=== PATIENT | female | born 1960 | race African-American/Black ===

== ENCOUNTER 2017-09-27 16:25 | Emergency (ER) | payer BC, MEDICARE ==
[~2017-09-27] VITALS: Ht 157.5 cm; Wt 68.0 kg
[~2017-09-27 16:25] MED LIST: AMLO-512 PO; ASPI81TA87 PO; ATOR20TA86 PO; BENZ0.5T44 PO; DIPH-654 PO; GABA-531 PO; HALO5 PO; HYDR-3965 PO; INSLAN SQ; INSNOV SQ; KDUR10 PO; LEVO100 PO; LISI-661 PO; QUET200T PO; SERT50TA12 PO; TRAZ-147 PO; TRIA1TAB3 PO; ZOLP10TA7 PO
[2017-09-27 16:42] LABS: GLUCOSE,POINT OF CARE > 600 MG/DL (70-110)
[2017-09-27] MEDS ORDERED: SODIUM CHLORIDE 0.9% 1,000 ML IV ONE ×2 (17:00→17:45)
[2017-09-27] MEDS ORDERED: INSULIN REGULAR, HUMAN 100 UNITS/ML IVP ONE (17:00)
[2017-09-27] MEDS ORDERED: KETOROLAC TROMETHAMINE 30 MG/ML VIAL IVP ONE (17:00)
[2017-09-27 17:13] LABS: BASOPHILS % (AUTO) 1.1 % (0.0-2.0); EOSINOPHILS % (AUTO) 0.9 % (1.0-6.0); HEMATOCRIT 38.6 % (36-46); HEMOGLOBIN 12.9 g/dL (12.0-16.0); LYMPHOCYTES # (AUTO) 1.5 K/uL (1.0-4.8); LYMPHOCYTES % (AUTO) 14.1 % (22.0-44.0); MEAN CORPUSCULAR HEMOGLOBIN 27.6 pg (26.0-34.0); MEAN CORPUSCULAR HGB CONC 33.4 G/dL (31.0-37.0); MEAN CORPUSCULAR VOLUME 83 fL (80-100); MONOCYTES # (AUTO) 0.7 K/uL (0.1-1.0); MONOCYTES % (AUTO) 6.3 % (2.0-9.0); NEUTROPHILS # (AUTO) 8.3 K/uL (1.8-7.7); NEUTROPHILS % (AUTO) 77.6 % (40.0-70.0); PLATELET COUNT (AUTO) 219 K/uL (150-450); RED BLOOD CELL COUNT(AUTO) 4.67 MIL/uL (4.00-5.20)
[2017-09-27 17:27] LABS: CALCIUM, TOTAL 9.4 mg/dL (8.8-10.5); CREATININE 1.41 mg/dL (0.60-1.30); POTASSIUM 3.2 mmol/L (3.5-5.1)
[2017-09-27] MEDS ORDERED: POTASSIUM CHLORIDE 20 MEQ ER TABLET PO ONE ×2 (18:00→20:00)
[2017-09-27] MEDS ORDERED: TraMADol HCL 50 MG TABLET PO ONE (18:45)
[2017-09-27 19:41] LABS: CALCIUM, TOTAL 8.6 mg/dL (8.8-10.5); CREATININE 1.21 mg/dL (0.60-1.30)
[2017-09-27] MEDS ORDERED: MORPHINE SULFATE 4 MG/ML SYRINGE IVP ONE (20:00)
[2017-09-27 20:46] VITALS: BP 113/67
== END 2017-09-27 20:47 | disposition home or self-care (01) ==
LOC: EMS 16:26
DX: M54.41 Lumbago with sciatica, right side (principal); E11.65 Type 2 diabetes mellitus with hyperglycemia; E87.6 Hypokalemia; I10 Essential (primary) hypertension; Z79.82 Long term (current) use of aspirin; Z88.8 Allergy status to other drugs, medicaments and biological substances; Z88.6 Allergy status to analgesic agent; Z88.5 Allergy status to narcotic agent; Z79.4 Long term (current) use of insulin
CPT/HCPCS: 36415; 80048; 82962; 85025; 96361; 96374; 96375; 99284; J1815; J1885; J2270; J7030

== ENCOUNTER 2018-07-14 19:20 | Emergency (ER) | payer BC, MEDICARE ==
[~2018-07-14] VITALS: Ht 154.9 cm; Wt 68.2 kg
[~2018-07-14 19:20] MED LIST changes: -HALO5 PO; +HALO5TAB2 PO; -HYDR-3965 PO; -TRAZ-147 PO; +TRAZ-220 PO
[2018-07-14] MEDS ORDERED: SODIUM CHLORIDE 0.9% 2,000 ML IV ONE (20:29)
[2018-07-14 21:03] LABS: APPEARANCE,URINE CLEAR (CLEAR); BILIRUBIN,URINE NEGATIVE (NEGATIVE); GLUCOSE, URINE (UA) >=1000 mg/dL (NEGATIVE); KETONES,URINE NEGATIVE (NEGATIVE); LEUKOCYTE ESTERASE ,URINE NEGATIVE (NEGATIVE); NITRATE,URINE NEGATIVE (NEGATIVE); OCCULT BLOOD,URINE NEGATIVE (NEGATIVE); PROTEIN,URINE NEGATIVE (NEGATIVE); UROBILINOGEN,URINE 0.2 mg/dL (<=1.0)
[2018-07-14 21:09] LABS: BASOPHILS % (AUTO) 1.1 % (0.0-2.0); LYMPHOCYTES # (AUTO) 1.6 K/uL (1.0-4.8); LYMPHOCYTES % (AUTO) 26.2 % (22.0-44.0); MEAN CORPUSCULAR HGB CONC 33.3 G/dL (31.0-37.0); MEAN CORPUSCULAR VOLUME 84 fL (80-100); MONOCYTES # (AUTO) 0.3 K/uL (0.1-1.0); MONOCYTES % (AUTO) 5.7 % (2.0-9.0); PLATELET COUNT (AUTO) 176 K/uL (150-450); RED BLOOD CELL COUNT(AUTO) 4.65 MIL/uL (4.00-5.20); RED CELL DISTRIBUTION WIDTH 13.3 % (11.5-14.5)
[2018-07-14] MEDS ORDERED: METOCLOPRAMIDE HCL 5 MG/ML 2 ML VIAL IVP ONE (21:15)
[2018-07-14 21:27] LABS: ALANINE AMINOTRANSFERASE 16 U/L (12-78); ALBUMIN 3.2 g/dL (3.4-5.0); ALKALINE PHOSPHATASE 94 U/L (46-116); ANION GAP 8 mmol/L (8-16); ASPARTATE AMINOTRANSFERASE 10 U/L (15-37); BILIRUBIN,TOTAL 0.4 mg/dL (0.1-1.0); CALCIUM, TOTAL 9.2 mg/dL (8.8-10.5); CARBON DIOXIDE 27 mmol/L (22-29); CHLORIDE 98 mmol/L (98-107); CREATININE 0.77 mg/dL (0.60-1.30); GLOMERULAR FILTR. RATE CALC > 60 mL/min (>60); LIPASE 190 U/L (73-393); POTASSIUM 3.9 mmol/L (3.5-5.1); SODIUM SERUM 133 mmol/L (136-145); UREA NITROGEN, BLOOD 11 mg/dL (7-18)
[2018-07-14 21:31] LABS: GLUCOSE,RANDOM 418 mg/dL (70-110)
[2018-07-14 21:32] LABS: BACTERIA,URINE None Seen /HPF (None Seen); RBC,URINE None Seen /HPF (0-2); SQUAMOUS EPITHELIAL CELL,UR Few /LPF (None Seen)
[2018-07-14 21:38] LABS: INFLUENZA TYPE A NEGATIVE FOR TYPE A (NEGATIVE); INFLUENZA TYPE B NEGATIVE FOR TYPE B (NEGATIVE)
[2018-07-14 21:40] LABS: B-TYPE NATRIURETIC PEPTIDE 7 pg/mL (0-100)
[2018-07-14] MEDS ORDERED: SODIUM CHLORIDE 0.9% 1,000 ML IV ONE (22:00)
[2018-07-15 00:04] LABS: GLUCOSE,POINT OF CARE 297 MG/DL (70-110)
[2018-07-15 00:05] VITALS: BP 125/80
[2018-07-15] MEDS ORDERED: MECLIZINE HCL 25 MG TABLET PO ONE (00:15)
== END 2018-07-15 00:23 | disposition home or self-care (01) ==
LOC: EMS 19:20
DX: K52.9 Noninfective gastroenteritis and colitis, unspecified (principal); I10 Essential (primary) hypertension; E11.9 Type 2 diabetes mellitus without complications; Z88.1 Allergy status to other antibiotic agents; Z88.5 Allergy status to narcotic agent; Z88.6 Allergy status to analgesic agent
CPT/HCPCS: 36415; 71046; 80053; 81001; 82962; 83690; 83880; 84484; 85025; 87804; 93005; 96361; 96374; 99284; J2765; J7030

== ENCOUNTER → 2019-05-03 | Outpatient (CLI) | payer BC, MEDICARE ==
[~2019-05-03] MED LIST changes: -AMLO-512 PO; +AMLO10TA7 PO
== END | disposition home or self-care (01) ==
LOC: PUC 13:22
PROVIDERS: ATTEND Internal Medicine
DX: S69.91XA Unspecified injury of right wrist, hand and finger(s), initial encounter (principal); S59.901A Unspecified injury of right elbow, initial encounter; S59.911A Unspecified injury of right forearm, initial encounter; M77.8 Other enthesopathies, not elsewhere classified; X58.XXXA Exposure to other specified factors, initial encounter; Y93.89 Activity, other specified; Y92.89 Other specified places as the place of occurrence of the external cause; Y99.8 Other external cause status

== ENCOUNTER 2019-05-05 22:24 | Emergency (ER) | payer BC, MEDICARE ==
[~2019-05-05] VITALS: Ht 154.9 cm; Wt 63.6 kg
[2019-05-06] MEDS ORDERED: GABAPENTIN 100 MG CAPSULE PO ONE (00:45)
[2019-05-06 01:10] VITALS: BP 144/85
== END 2019-05-06 01:24 | disposition home or self-care (01) ==
LOC: EMS 22:28
DX: M79.641 Pain in right hand (principal); E11.9 Type 2 diabetes mellitus without complications; I10 Essential (primary) hypertension; Z90.49 Acquired absence of other specified parts of digestive tract; Z90.710 Acquired absence of both cervix and uterus; Z79.899 Other long term (current) drug therapy; Z98.890 Other specified postprocedural states; Z79.82 Long term (current) use of aspirin; Z88.6 Allergy status to analgesic agent; Z88.1 Allergy status to other antibiotic agents; Z88.5 Allergy status to narcotic agent; Z88.8 Allergy status to other drugs, medicaments and biological substances

== ENCOUNTER 2021-06-01 13:22 | Emergency (ER) | payer BC, MEDICARE ==
[~2021-06-01] VITALS: Ht 154.9 cm; Wt 72.7 kg
[~2021-06-01 13:22] MED LIST changes: +AMLO-258 PO; -AMLO10TA7 PO; +GABA-1181 PO; -GABA-531 PO; -KDUR10 PO; -LISI-661 PO; +LISI-893 PO; +POTA-92 PO; +SERT-158 PO; -SERT50TA12 PO; -TRAZ-220 PO; +TRAZ-257 PO; -ZOLP10TA7 PO; +ZOLP10TA8 PO
[2021-06-01] MEDS ORDERED: ONDANSETRON HCL 4 MG TABLET PO ONE (14:45)
[2021-06-01] MEDS ORDERED: BACITRACIN 0.9 GM PACKET OINTMENT TP ONE (14:45)
[2021-06-01] MEDS ORDERED: IBUPROFEN 600 MG TABLET PO ONE (14:45)
[2021-06-01] MEDS ORDERED: LIDOCAINE 1% 10 ML VIAL SQ ONE (16:00)
[2021-06-01 17:06] VITALS: BP 167/109
== END 2021-06-01 17:34 | disposition home or self-care (01) ==
LOC: EMS 13:22
DX: S60.442A External constriction of right middle finger, initial encounter (principal); I10 Essential (primary) hypertension; F32.9 Major depressive disorder, single episode, unspecified; E11.9 Type 2 diabetes mellitus without complications; Z90.89 Acquired absence of other organs; Z90.710 Acquired absence of both cervix and uterus; Z79.899 Other long term (current) drug therapy; Z79.4 Long term (current) use of insulin; Z88.6 Allergy status to analgesic agent; Z88.5 Allergy status to narcotic agent; Z88.8 Allergy status to other drugs, medicaments and biological substances; W49.04XA Ring or other jewelry causing external constriction, initial encounter; Y93.89 Activity, other specified; Y92.89 Other specified places as the place of occurrence of the external cause; Y99.8 Other external cause status
CPT/HCPCS: 64450; 99284; J3490; Q0162